=== PATIENT | female | born 1975 | race Caucasian/White ===

== ENCOUNTER 2017-07-26 16:45 | Emergency (ER) | payer OTHER ==
[~2017-07-26] VITALS: Ht 172.7 cm; Wt 118.4 kg
[~2017-07-26 16:45] MED LIST: ALEVE220 MG PO; ATIVAN1 MG PO; BYSTOLIC10 MG; BYSTOLIC20 MG PO; CIPROFLOXACIN500 M1 PO; COZAAR100 MG PO; DILTIAZEM ER120 M1; FLEXERIL PO; GLUCOSAMINE HC500 MG PO; HYDROCODONE-AP1 EAC6 PO; IBUPROFEN 400400 M1 GT; IBUPROFEN 800800 M1 PO; LIORESAL 10 MG10 MG PO; LOPRESSOR100 M1 PO; MOBIC15 MG PO; NORCO 5-325 TA1 EACH PO; ORPHENADRINE C100 M2 PO; PERCOCET 5-3251 EACH PO; PREDNISONE 20 M20 M1 PO; PRILOSEC40 MG PO; PYRIDIUM100 MG PO; TORADOL 10 MG T10 MG PO; ULTRAM 50MG TAB50 MG PO; XANAX 0.5 MG0.5 M1 PO; ZOFRAN4 MG PO
[2017-07-26 17:00] LABS: URINE BILIRUBIN NEGATIVE (Negative); URINE BLOOD 3+ (Negative); URINE CLARITY CLEAR; URINE COLOR YELLOW; URINE GLUCOSE-RANDOM NEGATIVE (Negative); URINE KETONES NEGATIVE (Negative); URINE LEUKOCYTES-REFLEX NEGATIVE (Negative); URINE NITRITE-REFLEX NEGATIVE (Negative); URINE PROTEIN NEGATIVE (Negative); URINE SPECIFIC GRAVITY 1.025 (1.005-1.030); URINE UROBILINOGEN 0.2 E.U./dl (0.2-1.0)
[2017-07-26 17:06] LABS: URINE RBC >20 Many /HPF (0-2); URINE WBC-REFLEX 0-5 Rare /HPF (0-5)
[2017-07-26 17:07] LABS: CASTS None Seen /LPF (None Seen); CRYSTALS None Seen /LPF (None Seen); MUCUS None Seen strn/LPF (None Seen); SQUAMOUS >10 Many /LPF (0-3)
[2017-07-26 17:30] LABS: ABSOLUTE BASOPHILS 0.1 thou/uL (0.0-0.2); ABSOLUTE EOSINOPHILS 0.1 thou/uL (0.0-0.7); ABSOLUTE LYMPHOCYTES 2.9 thou/uL (0.8-5.3); ABSOLUTE MONOCYTES 0.7 thou/uL (0.0-1.2); ABSOLUTE NEUTROPHILS 5.3 thou/uL (1.6-8.1); BASOPHILS 0.6 %; EOSINOPHILS 1.5 %; HEMATOCRIT 38.9 % (37.0-47.0); HEMOGLOBIN 13.1 gm/dL (12.0-15.0); LYMPHOCYTES 31.9 %; MCHC 33.7 g/dL (28.0-37.0); MCV 89.1 fL (80.0-100.0); MONOCYTES 7.9 %; MPV 9.6 fl. (7.2-11.1); NUCLEATED RBCS 0 /100WBC; PLATELET COUNT* 199 thou/uL (150-400); POLYS 58.1 %; RBC 4.36 mil/uL (4.20-5.00); RDW-CV 13.8 % (10.5-14.5); WBC 9.1 thou/uL (4.0-11.0)
[2017-07-26 17:37] LABS: ANION GAP 7 mmol/L (7-16); BUN 11 mg/dL (7-18); CALCIUM 8.9 mg/dL (8.5-10.1); CHLORIDE 103 mmol/L (98-107); CO2 29 mmol/L (21-32); GLUCOSE 106 mg/dL (70-99); SODIUM 139 mmol/L (136-145)
[2017-07-26 17:44] LABS: ALBUMIN 3.8 g/dL (3.4-5.0); ALKALINE PHOSPHATASE 70 U/L (46-116); LIPASE 280 U/L (73-393); SGOT 34 U/L (15-37); SGPT 43 U/L (30-65); TOTAL BILIRUBIN 0.2 mg/dL (<0.1-1.0); TOTAL PROTEIN 7.3 g/dL (6.4-8.2); TROPONIN-I LEVEL <0.06 ng/mL (<0.06)
[2017-07-26] MEDS ORDERED: HYDROCODONE-AP1 EAC6 PO (18:47)
[2017-07-26 19:00] VITALS: BP 181/97
== END 2017-07-26 19:01 | disposition home or self-care (01) ==
LOC: M.ERS 16:45
PROVIDERS: Physician Assistant
DX: R31.9 Hematuria, unspecified (principal); R10.9 Unspecified abdominal pain; I10 Essential (primary) hypertension; F41.9 Anxiety disorder, unspecified; F17.210 Nicotine dependence, cigarettes, uncomplicated; Z88.0 Allergy status to penicillin

== ENCOUNTER 2018-06-20 16:30 | Emergency (ER) | payer OTHER ==
[~2018-06-20] VITALS: Ht 172.7 cm; Wt 112.0 kg
[2018-06-20] MEDS ORDERED: AVAPRO75 MG PO (16:45)
[2018-06-20] MEDS ORDERED: PROPRANOLOL 1010 MG PO (16:45)
[2018-06-20] MEDS ORDERED: COLESTIPOL HCL1 G1 PO (16:46)
[2018-06-20 16:47] LABS: URINE BILIRUBIN NEGATIVE (Negative); URINE BLOOD 1+ (Negative); URINE CLARITY CLEAR; URINE COLOR YELLOW; URINE GLUCOSE-RANDOM NEGATIVE (Negative); URINE KETONES NEGATIVE (Negative); URINE LEUKOCYTES-REFLEX NEGATIVE (Negative); URINE NITRITE-REFLEX NEGATIVE (Negative); URINE PROTEIN NEGATIVE (Negative); URINE SPECIFIC GRAVITY 1.025 (1.005-1.030); URINE UROBILINOGEN 0.2 E.U./dl (0.2-1.0)
[2018-06-20 16:54] LABS: CASTS None Seen /LPF (None Seen); SQUAMOUS 0-3 Few /LPF (0-3); URINE RBC 0-2 Rare /HPF (0-2); URINE WBC-REFLEX 0-5 Rare /HPF (0-5)
[2018-06-20 16:55] LABS: CRYSTALS None Seen /LPF (None Seen)
[2018-06-20 17:13] LABS: ABSOLUTE BASOPHILS 0.1 thou/uL (0.0-0.2); ABSOLUTE EOSINOPHILS 0.1 thou/uL (0.0-0.7); ABSOLUTE LYMPHOCYTES 3.3 thou/uL (0.8-5.3); ABSOLUTE MONOCYTES 0.9 thou/uL (0.0-1.2); BASOPHILS 1.1 %; EOSINOPHILS 1.1 %; HEMATOCRIT 39.3 % (37.0-47.0); HEMOGLOBIN 13.6 gm/dL (12.0-15.0); LYMPHOCYTES 28.7 %; MCH 30.1 pg (26.0-34.0); MCHC 34.6 g/dL (28.0-37.0); MCV 86.9 fL (80.0-100.0); MONOCYTES 7.9 %; MPV 10.2 fl. (7.2-11.1); NUCLEATED RBCS 0 /100WBC; PLATELET COUNT* 205 thou/uL (150-400); POLYS 61.2 %; RBC 4.52 mil/uL (4.20-5.00); WBC 11.4 thou/uL (4.0-11.0)
[2018-06-20 17:26] LABS: CALCIUM 8.9 mg/dL (8.5-10.1); CREATININE 0.9 mg/dL (0.6-1.3); POTASSIUM 3.9 mmol/L (3.5-5.1); TOTAL BILIRUBIN 0.4 mg/dL (<0.1-1.0); TOTAL PROTEIN 7.7 g/dL (6.4-8.2)
[2018-06-20] MEDS ORDERED: NORCO 5-325 TA1 EACH PO (18:14)
[2018-06-20 18:23] VITALS: BP 171/96
== END 2018-06-20 18:25 | disposition home or self-care (01) ==
LOC: M.ERS 16:30
PROVIDERS: Nurse Practitioner Family
DX: R10.12 Left upper quadrant pain (principal); R10.13 Epigastric pain; I10 Essential (primary) hypertension; F41.9 Anxiety disorder, unspecified; F17.210 Nicotine dependence, cigarettes, uncomplicated; Z88.0 Allergy status to penicillin; Z98.890 Other specified postprocedural states; Z90.49 Acquired absence of other specified parts of digestive tract

== ENCOUNTER → 2018-07-03 | Outpatient (CLI) | payer OTHER ==
[~2018-07-03] MED LIST changes: +AVAPRO75 MG PO; +COLESTIPOL HCL1 G1 PO; +PROPRANOLOL 1010 MG PO
== END ==
LOC: M.NUC 06-29 08:03
DX: R10.12 Left upper quadrant pain (principal); R68.81 Early satiety; Z88.0 Allergy status to penicillin

== ENCOUNTER → 2018-07-20 | Outpatient (CLI) | payer OTHER ==
[~2018-07-20] MED LIST changes: +HAIR, SKIN & N1 EAC1 PO; +RANITIDINE HCL300 M1 PO
--- NOTE | ~2018-07-20 | PAINCON ---
[address] [address] PAIN MANAGEMENT CONSULTATION Name: BELKIS AJ Room: [facility] P[facility] George#: [id number] Admission: 07/20/18 Attend Phys: Jayne Hernandez MD Discharge: Date of : 75 Report #: [id number] THIS REPORT FOR: //name// CC: Jayne Del Valle DATE OF SERVICE: 07/20/2018 CHIEF COMPLAINT: History of back pain. "I have had epidural in the past and they have been helpful. I would like to consider another injection." HISTORY OF PRESENT ILLNESS: The patient is a 43-year-old female who has been referred to the Pain Clinic for evaluation. She has a history of nagging back pain. States that the pain has radiated down into the lower portion of her back and involves her right butt cheek. It radiates down into the posterior portion of her leg as well. Certain movements exacerbate the pain and discomfort such as walking. She has been less active over a period of time because of the pain. At this point, she is trying to become more active and more involved. She did work in the hospital type setting. She had to stop that job because of the amount of standing that was required. Now, she has a job where she does more sitting and less standing. She tries to take minimal amount of pain medication. She has undergone physical therapies on seven occasions. States that she continues to try to do the exercises, which she was provided. Did have another MRI of her back that did show some problems with her low back area in the area of the right buttocks. She describes her discomfort as intermittent, burning, shooting, aching, gnawing and throbbing. Rates it as a 5/10 at this point. She has not had back surgery. States that she did have some bowel problems with a number of disk in the lower portion of her back in the past. Refrains from significant use of nonsteroidal anti-inflammatory medications. She has had some GI irritation in the past. CURRENT MEDICATIONS: Omeprazole 40 mg, irbesartan 150 mg, propranolol 80 mg, metoprolol 100 mg b.i.d., phentermine 37.5 mg, alprazolam 0.5 mg q.6-8h. p.r.n., baclofen 10 mg t.i.d., and colestipol 1 gram. ALLERGIES: No known drug allergies. PAST MEDICAL HISTORY: Stomach problems, and hypertension. PAST SURGICAL HISTORY: Left ankle fracture in 2012, left knee surgery, ACL repair in 2012, 1994, and tailbone surgery in 2006. SOCIAL HISTORY: She works as a tech support person. She is working at this juncture. REVIEW OF SYSTEMS: Generally good health, appetite loss, nausea, vomiting, [facility] [address] [facility] [place] [address] PAIN MANAGEMENT CONSULTATION Name: BELKIS AJ Room: [facility]#: [id number] Admission: 07/20/18 Attend Phys: Jayne Hernandez MD Discharge: Date of : 75 Report #: [id number] abdominal pain, peptic ulcer, frequent urination, awakens at night to urinate, joint pain, joint stiffness, joint weakness, muscle pain, cramping, back pain, and difficulty walking. LABORATORY DATA: MRI of the lumbar spine dated 07/04/2015 showed L5-S1 level with mild broad-based left paracentral annular disk bulging 0.3-0.4 cm posterior to L5-S1. Minimal bilateral facet degenerative changes noted. Findings appear to have improved as compared to 2012. PAIN CLINIC ASSESSMENT/PQRS: 1. History of osteoarthritis. The patient has some complaints of bulging disk in her low back in the past. 2. Rheumatoid arthritis. The patient is not being treated for rheumatoid arthritis. 3. Height 5 feet 8 inches. Weight 247 pounds, BMI is 38.3. 4. Vital signs: Blood pressure 143/68, heart rate 64, respiratory rate 16, room air saturation 95%, and temperature 98.2. 5. Pain intensity 4/10. 6. Fall history: The patient has not fallen in the last 3 months. 7. Blood thinner. The patient is not on a blood thinning medication. 8. Hypertension. The patient has been treated for hypertension. 9. Opioids greater than 6 weeks. The patient is not on an opioid regimen. 10. Risk assessment tool, low for opioid use. 11. Functional assessment tool, 44/70. 12. Recreational drug use. The patient denies use of recreational drugs. 13. Tobacco: The patient denies use of tobacco. 14. Alcohol: The patient drinks only on a social level. PHYSICAL EXAMINATION: GENERAL: The patient is a well-developed and well-nourished, somewhat obese white female. Her is accompanying her. She is alert and oriented x 3. Her affect is appropriate. Speech is fluent. HEENT: Normocephalic, atraumatic. Extraocular eye muscles intact. Sclerae nonicteric. Mucous membranes are moist. NECK: Without adenopathy or JVD. HEART: Regular rate. S1, S2. LUNGS: Clear to auscultation. EXTREMITIES: Upper extremity muscle strength is judged to be 5/5 for the major muscle groups in the upper extremity. Deep tendon reflexes at the biceps are +1 left and right. Absent brachioradialis and triceps reflex. Lower extremity muscle strength is judged to be 5/5 for the major muscle groups in the upper extremity. MUSCULOSKELETAL: Without significant scoliosis, kyphosis or lordosis. The patient is able lean forward to about 90 degrees. Notes some increased pain in her right buttocks area. Lumbar extension causes some increased pain across the lower portion of her back on the left than the [place] [address] PAIN MANAGEMENT CONSULTATION Name: BELKIS AJ Room: [facility]#: [id number] Admission: 07/20/18 Attend Phys: Jayne Hernandez MD Discharge: Date of : 75 Report #: [id number] rotation cause increased discomfort in the right low back area. Left and right lateral bending cause some increased discomfort in the right low back area. Rise into her toes cause some increased low back pain. Heel walking was not very problematic. The patient has a well-healed scar in the left ankle area. Complains of some swelling that takes place in this area. Well-healed scar in the left knee from ACL repair. Deep tendon reflexes are trace at the knees, bilateral absent at the ankles. Anterior spring test, the patient does complain of some pain in the right low back area. Chema's sign, the patient notes some increased pain in the low back area, left lateral decubitus position with posterior spring test. The patient does still reflect some discomfort in the right low back area. Has positive straight leg raise on the right. IMPRESSION: 1. Lumbar radiculopathy, L5-S1. The patient gleaned about 3 years improvement after an epidural steroid injection in the past. Positive signs of SI joint dysfunction on the right. 2. Stomach problems. 3. Hypertension. RECOMMENDATIONS: We discussed treatment options with the patient and her . Risks and benefits of an epidural steroid injection were discussed. They include infection, worsening of pain. No improvement in pain, nerve damage, bleeding. The patient feels that she would like to proceed with another injection. Given that the last injection helped for about 3 years. She will return to the Pain Clinic at which time she will then undergo an epidural steroid injection. Risks and benefits of the procedure were discussed. Questions were answered. A model was used to indicate the area of probable pathology. We would like to thank you for letting us participate in her care. We hope she continues to improve. By: [id number]. Asim Hernandez MD /chino
== END ==
LOC: M.PC 08:10
DX: M54.17 Radiculopathy, lumbosacral region (principal); I10 Essential (primary) hypertension; Z79.891 Long term (current) use of opiate analgesic; Z79.899 Other long term (current) drug therapy

== ENCOUNTER → 2018-07-27 | Outpatient (CLI) | payer OTHER ==
--- NOTE | ~2018-07-27 | PAINCON ---
[address] [address] PAIN MANAGEMENT CONSULTATION Name: BELKIS AJ Room: [facility] P[facility] MorfinNathalyVietNathaly#: [id number] Admission: 07/27/18 Attend Phys: Jayne Hernandez MD Discharge: Date of : 75 Report #: [id number] THIS REPORT FOR: //name// CC: Jayne Del Valle DATE OF SERVICE: 07/27/2018 CHIEF COMPLAINT: Low back pain. HISTORY: The patient is a 43-year-old female who has pain in the midline area with pain that is radiating down into her legs. She has undergone an epidural steroid injection in the past. She returns today for an epidural steroid injection. It involves her low back area with pain primarily down to the right buttocks. Continues to be problematic. Pain is worse with activity such as walking, standing, climbing stairs, going from a sitting to a standing position. ALLERGIES: No known drug allergies. CURRENT MEDICATIONS: Omeprazole 40 mg, irbesartan 150 mg, propranolol 80 mg, metoprolol 100 mg b.i.d., phentermine 37.5 mg, alprazolam 0.5 mg q.6 hours, baclofen 10 mg t.i.d., colestipol 1 gram. PAIN CLINIC ASSESSMENT/PQRS: 1. History of osteoarthritis. The patient has some complaints of bulging disks in the low portion of her back. 2. Rheumatoid arthritis. The patient is not being treated for rheumatoid arthritis. 3. Height 5 feet 8 inches, weight 247 pounds, BMI is 37.9. 4. Vital signs: Blood pressure 140/78, heart rate 61, respiratory rate 16, room air saturation is 98%, temperature 98.0. Pain intensity 5/10. 5. Fall history: The patient has not fallen in the last 3 months. 6. Blood thinner. The patient is not on a blood thinning medication. 7. Opioids greater than 6 weeks. The patient is not on an opioid medication on a regular basis. 8. Risk assessment tool, low for opioid use. 9. Functional assessment 4470. 10. Recreational drug use. The patient denies use of recreational drugs. 11. Tobacco: The patient denies use of tobacco. 12. Alcohol. The patient drinks only on social events. PHYSICAL EXAMINATION: GENERAL: The patient is well-developed, well-nourished, obese white female, appears her appropriate age. She is alert and oriented x 3. Affect is appropriate. Speech is fluent. HEENT: Normocephalic, atraumatic. Extraocular [place] [address] PAIN MANAGEMENT CONSULTATION Name: JEAN MARIEBELKIS JACKSON Room: [facility]#: [id number] Admission: 07/27/18 Attend Phys: Jayne Hernandez MD Discharge: Date of : 75 Report #: [id number] nonicteric. Mucous membranes are moist. NECK: Without adenopathy or JVD. HEART: Regular rate. S1, S2. LUNGS: Clear to auscultation. EXTREMITIES: Upper extremity muscle strength is judged to be 5/5 for about all major muscle groups in the upper extremities. Lower extremity muscle strength judged to be 5/5 for the major muscle groups. MUSCULOSKELETAL: Without significant scoliosis, kyphosis or lordosis. The patient has pain and discomfort that radiates down to the left as well as the right lateral portion of her back. The patient is a positive straight leg raise on the right. IMPRESSION: 1. Lumbar radiculopathy L5-S1. The patient has gleaned about 3 years' improvement after epidural steroid injection in the past. Positive signs of SI joint dysfunction in the right. 2. Stomach problems. 3. Hypertension. RECOMMENDATIONS: We discussed treatment options with the patient. Risks and benefits of an epidural steroid injection were discussed. They include but are not limited to infection, worsening of pain, no improvement in pain, trauma, bleeding, or nerve damage. The patient elects to proceed. PROCEDURE NOTE: The patient was taken to the procedure area. She was then assisted in getting on the examination table. Anterior, posterior as well as lateral viewing with fluoroscopy were undertaken. The patient's back was sterilely prepped with a Betadine solution. It was allowed to dry. A 25-gauge needle was then advanced and skin wheal was provided at the L5-S1 area. A 17-gauge Tuohy with loss of resistance technique was used to gain access to the epidural space. There was no CSF, heme or paresthesia. Total of 80 mg Depo-Medrol, 40 mg triamcinolone and 2 mL of 0.25% bupivacaine was injected. The patient tolerated the procedure well. There were no complications. She remained in the Pain Clinic for an appropriate amount of time. She will follow up in the future as needed. We would like to thank you for letting us participate in her care. We hope she continues to improve. By: [id number]. Asim Hernandez MD /chino
== END | disposition home or self-care (01) ==
LOC: M.PC 05:20
DX: M54.16 Radiculopathy, lumbar region (principal); G89.29 Other chronic pain; I10 Essential (primary) hypertension; K92.9 Disease of digestive system, unspecified; Z79.899 Other long term (current) drug therapy; Z98.890 Other specified postprocedural states; Z88.0 Allergy status to penicillin

== ENCOUNTER → 2018-11-02 | Outpatient (CLI) | payer OTHER ==
[~2018-11-02] MED LIST changes: +BACLOFEN20 MG PO
--- NOTE | ~2018-11-02 | PAINCON ---
[address] [address] PAIN MANAGEMENT CONSULTATION Name: BELKIS AJ Room: [facility] George#: [id number] Admission: 11/02/18 Attend Phys: Jayne Hernandez MD Discharge: Date of : 75 Report #: [id number] THIS REPORT FOR: //name// CC: Jayne Del Valle DATE OF SERVICE: 11/02/2018 CHIEF COMPLAINT: Pain in the low back with tightness in the low back area. HISTORY: The patient is a 43-year-old female who has been followed in the pain clinic because of chronic pain and discomfort in the low back area. She has returned today for renewal of her medication as well as for an epidural steroid injection. She has undergone epidural steroid injections in the past and found that they were beneficial. She has had a new insurance changed. They have okayed her to proceed with an epidural steroid injection. She is having pain while sitting and standing. She found that the injection back in July of 2018 was helpful. She has been using muscle relaxants. She has been having cramping in her legs. She has been using baclofen for about the last 5 years. She has taken it about once a day. This is 10 mg. Notes that walking, standing, sitting can be problematic. She would like to proceed with another epidural steroid injection. ALLERGIES: No known drug allergies. CURRENT MEDICATIONS: Omeprazole 40 mg, irbesartan 150 mg, propranolol 80 mg, metoprolol 100 mg b.i.d., phentermine 37.5 mg, alprazolam 0.5 mg q. 6 hours p.r.n., baclofen 10 mg t.i.d., usually takes one tablet daily, colestipol 1 gram. PAIN CLINIC ASSESSMENT/PQRS: 1. The patient has some cough, bulging disks in the lower portion of her back. She is not being treated for rheumatoid arthritis. 2. Height 5 feet 8 inches, weight 251 pounds, BMI is 38.1. 3. Blood pressure 151/79, heart rate 63, respiratory rate 16, room air saturation 97%, temperature 98.4. 4. Pain intensity 07/19. 5. Fall history: The patient has not fallen in the last 3 months. 6. Blood thinner. The patient is not on a blood thinning medication. 7. Opioids greater than 6 weeks. The patient is not on any opioid regimen on a regular basis. 8. Risk assessment tool, low for opioid use. 9. Functional assessment tool: 44/70. 10. Recreational drug use. The patient denies use of recreational drugs. 11. Tobacco: The patient denies use of tobacco. 12. Alcohol: The patient drinks alcoholic beverages [place] [address] PAIN MANAGEMENT CONSULTATION Name: BELKIS AJ [id number] Admission: 11/02/18 Attend Phys: Jayne Hernandez MD Discharge: Date of : 75 Report #: [id number] PHYSICAL EXAMINATION: GENERAL: The patient is a well-developed, well-nourished white female. Appears her stated age. She is alert and oriented x 3. Her affect is appropriate. Speech is fluent. HEENT: Normocephalic, atraumatic. Extraocular eye muscles intact. Sclerae nonicteric. Mucous membranes are moist. NECK: Without adenopathy or JVD. Upper extremity muscle strength judged to be 5/5 for the major muscle groups in the upper extremity. Lower extremity muscle strength 5/5 for the major muscle groups in the lower extremity. The patient is without significant scoliosis, kyphosis or lordosis. The patient has pain that radiates down into the lower portion of her back in the left L5-S1 dermatomal distribution with positive straight leg raise. IMPRESSION: 1. Lumbar radiculopathy, L5-S1. 2. Stomach problems. 3. Hypertension. RECOMMENDATIONS: We discussed treatment options with the patient. Risks and benefits of an epidural steroid injection were discussed. They include but are not limited to infection, worsening of pain, no improvement in pain and the patient elects to proceed. PROCEDURE NOTE: The patient was taken to the procedure area. She was then assisted in getting on the examination table. Her back was sterilely prepped with a Betadine solution. A 0.25% bupivacaine was injected. The area had been infiltrated with 0.25% bupivacaine. The midline approach at L5-S1 was unremarkable. Aspiration was negative. The patient remained in the pain clinic for an appropriate amount of time. She will follow up in the future as needed. We would like to thank you for letting us participate in her care. We hope she continues to improve. By: [id number]. Asim Hernandez MD /nt
== END | disposition home or self-care (01) ==
LOC: M.PC 08-24 08:40
DX: M54.16 Radiculopathy, lumbar region (principal); G89.29 Other chronic pain; I10 Essential (primary) hypertension; Z87.19 Personal history of other diseases of the digestive system; Z88.0 Allergy status to penicillin; Z98.890 Other specified postprocedural states; Z87.440 Personal history of urinary (tract) infections

== ENCOUNTER → 2019-05-02 | Outpatient (CLI) | payer OTHER | LOC: M.PC 08:50 → M.RAD 08:50 | DX: M47.26 Other spondylosis with radiculopathy, lumbar region (principal); M53.87 Other specified dorsopathies, lumbosacral region; M51.16 Intervertebral disc disorders with radiculopathy, lumbar region; M19.012 Primary osteoarthritis, left shoulder; M19.011 Primary osteoarthritis, right shoulder; M70.62 Trochanteric bursitis, left hip; M70.61 Trochanteric bursitis, right hip ==

== ENCOUNTER 2019-05-04 10:19 | Emergency (ER) | payer OTHER ==
[~2019-05-04] VITALS: Ht 172.7 cm; Wt 120.2 kg
[2019-05-04 10:54] LABS: INFLUENZA A ANTIGEN Negative (Negative); INFLUENZA B ANTIGEN Negative (Negative)
[2019-05-04] MEDS ORDERED: TESSALON PERLE100 MG PO (11:31)
[2019-05-04] MEDS ORDERED: PREDNISONE 10 M10 MG PO (11:31)
[2019-05-04 11:40] VITALS: BP 148/80
== END 2019-05-04 11:41 | disposition home or self-care (01) ==
LOC: M.ERS 10:19
PROVIDERS: Family Medicine
DX: J11.1 Influenza due to unidentified influenza virus with other respiratory manifestations (principal); I10 Essential (primary) hypertension; F41.9 Anxiety disorder, unspecified; F17.210 Nicotine dependence, cigarettes, uncomplicated; Z90.49 Acquired absence of other specified parts of digestive tract; Z98.890 Other specified postprocedural states; Z88.0 Allergy status to penicillin

== ENCOUNTER → 2020-03-18 | Outpatient (CLI) | payer OTHER ==
[~2020-03-18] MED LIST changes: +PREDNISONE 10 M10 MG PO; +TESSALON PERLE100 MG PO
== END ==
LOC: M.RAD 14:00
PROVIDERS: ATTEND Nurse Practitioner Family
DX: N63.10 Unspecified lump in the right breast, unspecified quadrant (principal)

== ENCOUNTER → 2020-06-30 | Outpatient (CLI) | payer OTHER | LOC: M.RAD 13:52 | PROVIDERS: ATTEND Nurse Practitioner Family | DX: M79.671 Pain in right foot (principal) ==

== ENCOUNTER 2021-01-27 10:22 | Emergency (ER) | payer OTHER ==
[~2021-01-27] VITALS: Ht 172.7 cm; Wt 106.1 kg
[2021-01-27] MEDS ORDERED: BIRTH CONTROL (10:36)
[2021-01-27] MEDS ORDERED: LOMAIRA8 MG PO (10:37)
[2021-01-27 10:43] LABS: URINE BILIRUBIN NEGATIVE (Negative); URINE BLOOD TRACE (Negative); URINE CLARITY CLEAR; URINE COLOR ORANGE; URINE GLUCOSE-RANDOM TRACE (Negative); URINE KETONES NEGATIVE (Negative); URINE LEUKOCYTES-REFLEX NEGATIVE (Negative); URINE PROTEIN NEGATIVE (Negative); URINE SPECIFIC GRAVITY <= 1.005 (1.005-1.030)
[2021-01-27 10:45] LABS: URINE NITRITE-REFLEX POSITIVE (Negative)
[2021-01-27 11:09] LABS: CASTS None Seen /LPF (None Seen); CRYSTALS None Seen /LPF (None Seen); SQUAMOUS 0-3 Few /LPF (0-3); URINE WBC-REFLEX None Seen /HPF (0-5)
[2021-01-27 11:10] LABS: BACTERIA-REFLEX 1-9 Few /HPF (None Seen); URINE RBC 0-2 Rare /HPF (0-2)
[2021-01-27 11:11] LABS: ABSOLUTE EOSINOPHILS 0.2 thou/uL (0.0-0.7); ABSOLUTE LYMPHOCYTES 2.7 thou/uL (0.8-5.3); ABSOLUTE MONOCYTES 0.6 thou/uL (0.0-1.2); ABSOLUTE NEUTROPHILS 3.9 thou/uL (1.6-8.1); BASOPHILS 0.5 %; EOSINOPHILS 2.4 %; HEMATOCRIT 40.1 % (37.0-47.0); HEMOGLOBIN 13.7 gm/dL (12.0-15.0); MCH 30.2 pg (26.0-34.0); MCHC 34.1 g/dL (28.0-37.0); MCV 88.7 fL (80.0-100.0); MONOCYTES 8.5 %; MPV 9.6 fl. (7.2-11.1); NUCLEATED RBCS 0 /100WBC; PLATELET COUNT* 200 thou/uL (150-400); POLYS 52.6 %; RBC 4.52 mil/uL (4.20-5.00); RDW-CV 13.4 % (10.5-14.5); WBC 7.4 thou/uL (4.0-11.0)
[2021-01-27 11:16] LABS: CALCIUM 9.1 mg/dL (8.5-10.1); POTASSIUM 3.9 mmol/L (3.5-5.1)
[2021-01-27 11:19] LABS: ALBUMIN 4.2 g/dL (3.4-5.0); TOTAL BILIRUBIN 0.6 mg/dL (<0.1-1.0); TOTAL PROTEIN 7.9 g/dL (6.4-8.2)
[2021-01-27] MEDS ORDERED: IBUPROFEN 800800 M1 PO (12:20)
[2021-01-27] MEDS ORDERED: PYRIDIUM100 M1 PO (12:20)
[2021-01-27] MEDS ORDERED: ZOFRAN ODT4 MG PO (12:20)
[2021-01-27] MEDS ORDERED: CEPHALEXIN500 MG PO (12:20)
[2021-01-27 12:46] VITALS: BP 144/75
== END 2021-01-27 12:50 | disposition home or self-care (01) ==
LOC: M.ERS 10:22
PROVIDERS: Nurse Practitioner Family
DX: N28.89 Other specified disorders of kidney and ureter (principal); R91.8 Other nonspecific abnormal finding of lung field; I10 Essential (primary) hypertension; F41.9 Anxiety disorder, unspecified; F17.210 Nicotine dependence, cigarettes, uncomplicated; Z90.49 Acquired absence of other specified parts of digestive tract; Z88.0 Allergy status to penicillin; Z79.899 Other long term (current) drug therapy